=== PATIENT | female | born 1930 | race Caucasian/White ===

== ENCOUNTER → 2016-06-01 12:44 | Outpatient (CLI) | payer MEDICARE, OTHER ==
[2016-04-05 06:56] VITALS: BMI 22.3
[~2016-06-01 12:44] MED LIST: BAYER CHEWABLE81 MG PO; COZAAR50 MG PO; PLAVIX75 MG PO
== END | disposition home or self-care (01) ==
LOC: D.CT 12:44
DX: R06.00 Dyspnea, unspecified (principal); R07.9 Chest pain, unspecified

== ENCOUNTER 2016-10-13 19:44 | Emergency (ER) | payer MEDICARE, OTHER ==
[2016-04-05 06:56] VITALS: BMI 22.3
== END 2016-10-14 01:55 | disposition home or self-care (01) ==
LOC: D.ER 19:44
DX: R51 Headache (principal); I10 Essential (primary) hypertension

== ENCOUNTER → 2016-10-14 12:55 | Outpatient (CLI) | payer MEDICARE, OTHER ==
[2016-04-05 06:56] VITALS: BMI 22.3
== END | disposition home or self-care (01) ==
LOC: D.CT 12:55
DX: R51 Headache (principal)

== ENCOUNTER → 2016-10-25 19:16 | Outpatient (CLI) | payer MEDICARE, OTHER ==
[2016-04-05 06:56] VITALS: BMI 22.3
== END | disposition home or self-care (01) ==
LOC: D.LABREF 19:16
PROVIDERS: Internal Medicine Gastroenterology
DX: K57.30 Diverticulosis of large intestine without perforation or abscess without bleeding (principal); Z80.0 Family history of malignant neoplasm of digestive organs; Z86.010 Personal history of colon polyps

== ENCOUNTER → 2016-11-11 12:44 | Outpatient (CLI) | payer MEDICARE, OTHER ==
[2016-04-05 06:56] VITALS: BMI 22.3
== END | disposition home or self-care (01) ==
LOC: D.RT 11-10 14:00 → D.LAB 11-10 15:30 → D.RT 12:44
DX: J45.909 Unspecified asthma, uncomplicated (principal); E83.52 Hypercalcemia; R06.09 Other forms of dyspnea

== ENCOUNTER → 2018-04-24 10:34 | Outpatient (CLI) | payer MEDICARE, OTHER ==
[2016-04-05 06:56] VITALS: BMI 22.3
== END | disposition home or self-care (01) ==
LOC: D.RT 10:34
DX: J45.909 Unspecified asthma, uncomplicated (principal)

== ENCOUNTER → 2018-10-17 08:53 | Outpatient (CLI) | payer MEDICARE, OTHER ==
[2016-04-05 06:56] VITALS: BMI 22.3
== END | disposition home or self-care (01) ==
LOC: D.CT 08:53
PROVIDERS: ATTEND Internal Medicine Pulmonary Disease
DX: R93.89 Abnormal findings on diagnostic imaging of other specified body structures (principal)

== ENCOUNTER 2018-11-05 01:20 | Emergency (ER) | payer MEDICARE, OTHER ==
[~2018-11-05] VITALS: Ht 170.2 cm; Wt 63.6 kg
[2018-11-05 01:27] VITALS: Ht 170.2 cm; Wt 63.6 kg
[2018-11-05 03:22] VITALS: BP 140/89
== END 2018-11-05 02:35 | disposition home or self-care (01) ==
LOC: D.ER 01:20
DX: S01.01XA Laceration without foreign body of scalp, initial encounter (principal); W18.30XA Fall on same level, unspecified, initial encounter; Y93.89 Activity, other specified; Y92.012 Bathroom of single-family (private) house as the place of occurrence of the external cause